=== PATIENT | female | born 1945 | race African-American/Black ===

== ENCOUNTER → 2021-10-05 11:01 | Outpatient (CLI) | payer MEDICARE, OTHER, SELFPAY ==
--- NOTE | ~2021-10-05 | XR_ITS ---
EXAMINATION: XR knee RT 3V DATE: 10/05/2021 11:28 INDICATION: Chronic right knee pain. TECHNIQUE: 3 views of right knee including standing views were obtained. COMPARISON: None. FINDINGS: Bone alignment is normal. No fracture. There is mild tricompartmental osteoarthritis. No kn ee joint effusion. IMPRESSION: 1. Mild right knee osteoarthritis. Reviewed, dictated and finalized at location B.
== END ==
PROVIDERS: PCP Internal Medicine; Visit Provider Internal Medicine
DX: M17.11 Unilateral primary osteoarthritis, right knee (principal)
CPT/HCPCS: 73562

== ENCOUNTER 2023-11-30 11:31 | Emergency (ER) | payer MEDICARE, OTHER, SELFPAY ==
--- NOTE | ~2023-11-30 | XR_ITS ---
XR finger 1st RT min 2V 11/30/2023 12:18 Indication: Right first finger pain. Possible infection or foreign body. Procedure: 3 views right first finger Comparison: No prior studies for comparison. 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 No acute fracture or traumatic malalignment. There is a small marginal erosio n involving the distal aspect of the first proximal phalanx. Consider osteomyelitis in the appropriat e clinical setting. No foreign bodies are seen. Impression: 1: Small marginal erosion distal aspect of the right first proximal phalanx. If there is concern for osteomyelitis, further evaluation with MRI without and with contrast is recommended. Reviewed, dictated and finalized at location B. Impression: 1: Small marginal erosion distal aspect of the right first proximal phalanx. If there is concern for osteomyelitis, further evaluation with MRI without and wi th contrast is recommended.
--- NOTE | 2023-11-30 11:43 | ED.GENADULT ---
HPI - General Adult General Chief complaint: Skin/Abscess/Foreign Body Stated complaint: Finger Pain Time Seen by Provider: 11/30/23 11:47 Source: patient Mode of arrival: ambulatory Limitations: no limitations History of Present Illness HPI narrative: 78 y/o female presented for c/o right thumb tip pain with a pus-filled area at the tip for about 5 days. States about one week ago she felt tenderness to the fingertip like a foreign body was in the finger, so she used a hot needle to attempt to remove anything in the skin. Also used 'pimple tool' to the site but denies seeing anything come out. Unsure of injury or wound; works in her garden outside. Denies active drainage or any other skin concerns. Related Data Home Medications Medication Instructions Recorded Confirmed rosuvastatin 10 mg tablet 10 mg PO DAILY 11/30/23 11/30/23 valacyclovir 1 gram tablet 1,000 mg PO DAILY 11/30/23 11/30/23 Allergies Allergy/AdvReac Type Severity Reaction Status Date / Time No Known Allergies Allergy Verified 11/30/23 11:49 Review of Systems Review of Systems: CONSTITUTIONAL: Denies body aches, fever, chills, or sweats. CARDIOVASCULAR: Denies chest pain, palpitations, or edema. RESPIRATORY: Denies cough or dyspnea. GASTROINTESTINAL: Denies abdominal pain, nausea, vomiting, or diarrhea. SKIN: reports right thumb infection MUSCULOSKELETAL: Denies back pain, joint pain, or myalgia. NEUROLOGIC: Denies numbness, tingling, or weakness. PMFSH Comments At time of signature, I have reviewed and agree with nursing past medical, surgical, social and family history unless otherwise noted. Please see nursing chart for further information. There is no relevant family history pertinent to the presenting complaint Exam Narrative: GENERAL: Well-appearing ENT: Mucous membranes moist. Oropharynx without edema, erythema or lesions. CHEST: Clear to auscultation. HEART: Regular rate and rhythm. SKIN: Warm, dry. Right thumb distal phalanx with approx 0.2cm diameter subcutaneous area of purulence. No surrounding swelling or erythema. Mildly tender with palpation. CMS intact. NEURO: Alert and oriented x3. Extrem: Hand/finger images: 1. distal tip of phalanx with pinpoint area of purulence Course Course Emergency Course: Patient is aware of diagnosis, understands and agrees to treatment plan. Anticipatory guidance given. Patient agrees to follow-up as directed and is aware of reasons to seek care at the emergency department. Portions of this record may have been created with voice recognition software Level of Care: Express Care Visit Vital Signs Vital signs: Vital Signs Temperature 97.8 F 11/30/23 11:44 Pulse Rate 86 11/30/23 11:44 Respiratory Rate 14 11/30/23 11:44 Blood Pressure 101/78 11/30/23 11:44 Pulse Oximetry 100 11/30/23 11:44 Oxygen Delivery Room Air 11/30/23 11:44 Temperature 97.8 F 11/30/23 11:49 Pulse Rate 86 11/30/23 11:49 Respiratory Rate 14 11/30/23 11:49 Blood Pressure 101/78 11/30/23 11:49 Pulse Oximetry 86 L 11/30/23 11:49 Oxygen Delivery Room Air 11/30/23 11:49 Reviewed Medical Decision Making MDM Narrative Medical decision making narrative: Soaked the thumb in warm soapy water. Result of xray reviewed with pt; unlikely osteomyelitis however pt will f/u with pcp. Discussed physical exam findings c/w very mild area of purulence most c/w felon localized to tip approx 0.2cm diameter, firm, nonfluctuant. No indication for I&D at this time, Rx abx. Advised supportive measures and signs/symptoms to go to the ER. Pt is appropriate for outpt treatment and f/u. (O2 sat 100% RA, 86 entered in error Differential Diagnosis Differential Diagnosis: paronychia, felon, cellulitis, foreign body Vital Signs Vital Signs: Vital Signs Temperature 97.8 F 11/30/23 11:44 Pulse Rate 86 11/30/23 11:44 Respiratory Rate 14 11/30/23 11:44 Blood Pressure
[2023-11-30 11:44] VITALS: BP 101/78; PULSE 86; RESP 14; TEMP 36.6; O2SAT 100
[2023-11-30 11:49] VITALS: BP 101/78; PULSE 86; RESP 14; TEMP 36.6; O2SAT 86
== END 2023-11-30 13:08 | disposition home or self-care (01) ==
PROVIDERS: Emergency Provider Nurse Practitioner Family; PCP Internal Medicine
DX: L03.011 Cellulitis of right finger (principal); E78.00 Pure hypercholesterolemia, unspecified
CPT/HCPCS: 73140; 99213; G0463

== ENCOUNTER 2025-02-09 08:55 | Emergency (ER) | payer MEDICARE, OTHER, SELFPAY ==
[2025-02-09 09:08] VITALS: BP 126/70; PULSE 73; RESP 16; TEMP 36.1; O2SAT 100
--- NOTE | 2025-02-09 09:48 | ED.GENADULT ---
HPI - General Adult General Chief complaint: Skin/Abscess/Foreign Body Stated complaint: RASH Source: patient Mode of arrival: ambulatory Limitations: no limitations History of Present Illness HPI narrative: Patient presents for evaluation of skin concerns. She indicates she develops and blistered lesions to the 3rd and 4th digits of her right hand and the left thigh about 2 weeks ago. She suspects she was exposed to poison carmen after working out in her yard. She initially had associated pruritus but now has a burning sensation left thigh. She has applied aloe and calamine spray. Symptoms persist. Related Data Home Medications ?Medication ?Instructions ?Recorded ?Confirmed ?Last Taken ?Type rosuvastatin 10 mg tablet 10 mg PO DAILY 11/30/23 10/18/24 Unknown History fluticasone propionate 50 intranasal 08/12/24 10/18/24 Unknown History mcg/actuation nasal spray,suspension gabapentin 100 mg capsule mg 02/09/25 Unknown History Allergies Allergy/AdvReac Type Severity Reaction Status Date / Time No Known Allergies Allergy Verified 02/09/25 09:09 Review of Systems Review of Systems: CONSTITUTIONAL: Denies fever, chills, or sweats. EYES: Denies visual changes, redness, or discharge. ENT: Denies rhinorrhea, congestion, sore throat, or otalgia. CARDIOVASCULAR: Denies chest pain, palpitations, or edema. RESPIRATORY: Denies cough or dyspnea. GASTROINTESTINAL: Denies abdominal pain, nausea, vomiting, or diarrhea. GENITOURINARY: Denies dysuria or hematuria. SKIN: reports blistered lesions to the 3rd and 4th digits of the right hand and the left thigh MUSCULOSKELETAL: Denies back pain, joint pain, or myalgia. NEUROLOGIC: Reports burning sensation in the left thigh/ Denies headache, numbness, dizziness, or weakness. PSYCHIATRIC: Denies anxiety or depression. [facility] Past Medical History Medical History No pertinent past medical history Surgical History Surgical History History of hysterectomy 1995 Family History Family History Sibling History of blood clots Social History Social History Smoking status: Never smoker Alcohol intake: current Alcohol use details: rarely Substance use: never Do You Feel Safe in your Home?: Yes Lack of Transportation: No Lack of Food: Never True Current Housing: I Have Housing Concerned About Future Housing: No Difficulty Paying Gas/Electric Bills: No Difficulty Paying for Meds: No Currently Unemployed: No Education: Bachelor's Degree Difficulty w/ Childcare or Family Care: No Exam Narrative: GENERAL: Well-appearing, well-nourished, and in no acute distress. HEAD: Normocephalic, atraumatic. EYES: PERRLA and EOMI. ENT: Nares clear, no rhinorrhea or epistaxis. Mucous membranes moist. Oropharynx without tonsillar hypertrophy exudate or other lesions. Bilateral TMs pearly orellana nonbulging NECK: Supple. No adenopathy or masses. No carotid bruits or JVD CHEST: Clear to auscultation. No respiratory distress. No wheezes rales or rhonchi HEART: Regular rate and rhythm. No murmur heard. Normal peripheral pulses. ABDOMEN: Soft, nontender, nondistended, normal active bowel sounds. EXTREMITIES: Normal range of motion. No edema. SKIN: there are clustered vesicles noted to the 3rd digit of the right hand. There is an 11 x 15 cm area of erythema to the left thigh with multiple vesicles which are actively draining serous fluid. NEURO: No focal deficits. Alert and oriented x3. PSYCH: Normal mood and affect. Course Course Emergency Course: this is a 79-year-old female who presented for evaluation skin concerns. Her left thighs consistent with impetigo. This is likely secondary to poison carmen. Discharge with cephalexin and prednisone. Wound cultures obtained. Follow-up with primary provider. To the ER for worsening symptoms. Patient in agreement with plan of care. Level of Care: Express Care Visit Vital Signs Vital signs: Vital Signs Temperature 36.1 C L 02/09/25 09:08 Pulse Rate 73 02/09/25 09:08 Respiratory Rate 16 02/09/25 09:08 Blood Pressure 126/70 02/09/25 09:08 Pulse Oximetry 100 02/09/25 09:08 Temperature 36.1 C L 02/09/25 09:08 Pulse Rate 73 02/09/25 09:08 Respiratory Rate 16 02/09/25 09:08 Blood Pressure 126/70 02/09/25 09:08 Pulse Oximetry 100 02/09/25 09:08 Medical Decision Making Vital Signs Vital Signs: Vital Signs Temperature 36.1 C L 02/09/25 09:08 Pulse Rate 73 02/09/25 09:08 Respiratory Rate 16 02/09/25 09:08 Blood Pressure 126/70 02/09/25 09:08 Pulse Oximetry 100 02/09/25 09:08 Temperature 36.1 C L 02/09/25 09:08 Pulse Rate 73 02/09/25 09:08 Respiratory Rate 16 02/09/25 09:08 Blood Pressure 126/70 02/09/25 09:08 Pulse Oximetry 100 02/09/25 09:08 Discharge Plan Discharge Clinical Impression: Impetigo, Poison carmen dermatitis Patient Disposition: Home Condition: Stable Instructions: Antibiotic Form, Impetigo (DC), Poison Carmen (ED) Patient Language: Slovenian Prescriptions: New cephalexin 500 mg capsule 500 mg PO Q6H 10 Days Qty: 40 0RF prednisone 20 mg tablet See Rx Instructions .ROUTE .COMPLEX Qty: 18 0RF Rx Instructions: take 2 tabs po daily x 5 days, then 1 tab po daily x 5 days, then 1/2 tab po daily x 6 days No Action gabapentin 100 mg capsule rosuvastatin 10 mg tablet 10 mg PO DAILY fluticasone propionate 50 mcg/actuation spray,suspension intranasal Follow-up/Referrals: Ld,MD Vicki [Primary Care Provider, Unknown] Time of Disposition: 09:34
== END 2025-02-09 09:37 | disposition home or self-care (01) ==
PROVIDERS: Emergency Provider Nurse Practitioner; PCP Internal Medicine
DX: L01.00 Impetigo, unspecified (principal); L23.7 Allergic contact dermatitis due to plants, except food
CPT/HCPCS: 87070; 87075; 99213; G0463